=== PATIENT | female | born 1945 | race Caucasian/White ===

== ENCOUNTER → 2016-12-07 16:18 | Outpatient (CLI) | payer MEDICARE, OTHER ==
[2016-03-23 06:46] VITALS: BMI 24.3
[~2016-12-07 16:18] MED LIST: ASPIRIN EC81 M1 PO; GLUCOSAMINE & C1 CAP PO; HYDROCODONE-APA1 TAB PO; MULTIPLE VITAMI1 TA1 PO; RED YEAST RICE600 MG PO; TOPROL XL50 MG PO
== END | disposition home or self-care (01) ==
LOC: D.MAMMO 10:00
DX: Z85.3 Personal history of malignant neoplasm of breast (principal)

== ENCOUNTER → 2017-06-01 14:08 | Outpatient (CLI) | payer MEDICARE, OTHER ==
[2016-03-23 06:46] VITALS: BMI 24.3
== END | disposition home or self-care (01) ==
LOC: D.MAMMO 09:00
DX: Z85.3 Personal history of malignant neoplasm of breast (principal)

== ENCOUNTER → 2018-01-08 14:26 | Outpatient (CLI) | payer MEDICARE, OTHER ==
[2016-03-23 06:46] VITALS: BMI 24.3
== END | disposition home or self-care (01) ==
LOC: D.MAMMO 09:30
DX: Z85.3 Personal history of malignant neoplasm of breast (principal)

== ENCOUNTER → 2019-02-08 08:00 | Outpatient (CLI) | payer MEDICARE, BC ==
[2016-03-23 06:46] VITALS: BMI 24.3
== END | disposition home or self-care (01) ==
LOC: D.MAMMO 08:00
PROVIDERS: ATTEND Family Medicine
DX: Z12.31 Encounter for screening mammogram for malignant neoplasm of breast (principal)

== ENCOUNTER → 2020-03-31 18:24 | Outpatient (CLI) | payer MEDICARE, BC ==
[2016-03-23 06:46] VITALS: BMI 24.3
== END | disposition home or self-care (01) ==
LOC: D.MAMMO 01-31 11:30
PROVIDERS: ATTEND Family Medicine
DX: Z12.31 Encounter for screening mammogram for malignant neoplasm of breast (principal)

== ENCOUNTER 2020-04-14 19:00 | Outpatient (CLI) | payer MEDICARE, BC ==
[2016-03-23 06:46] VITALS: BMI 24.3
== END 2020-04-14 23:59 | disposition home or self-care (01) ==
LOC: D.MAMMO 19:00
PROVIDERS: ATTEND Family Medicine
DX: R92.8 Other abnormal and inconclusive findings on diagnostic imaging of breast (principal)

== ENCOUNTER 2021-04-15 09:30 | Outpatient (CLI) | payer MEDICARE, BC ==
[2016-03-23 06:46] VITALS: BMI 24.3
== END 2021-04-15 10:00 | disposition home or self-care (01) ==
LOC: D.MAMMO 09:30
PROVIDERS: ATTEND Family Medicine
DX: Z12.31 Encounter for screening mammogram for malignant neoplasm of breast (principal)